=== PATIENT | female | born 1945 | race African-American/Black ===

== ENCOUNTER 2022-06-24 16:56 | Observation (INO) ==
[2022-06-24] MEDS ORDERED: SODIUM CHLORIDE 0.9% 500 ML IV STA (17:37)
[2022-06-24] MEDS ORDERED: hydrALAZINE 20 MG/1 ML VIAL IV STA (17:49)
[2022-06-24 18:32] LABS: Basophils % 0.2 % (0.0-0.8); Hematocrit 35.2 VOL% (35.7-47.0); Hemoglobin 11.5 GM/DL (12.0-16.0); Immature Granulocytes % 0.3 %; Immature Granulocytes Absolute 0.02 #; Lymphocytes # 0.5 10*3/uL (1.4-4.0); Lymphocytes % 8.6 % (21.3-54.2); Mean Corpuscular HGB Conc 32.7 GM/DL (32-36); Mean Corpuscular Volume 80.2 FL (87-102); Mean Platelet Volume 11.6 FL (9.6-12.0); Monocytes # 0.2 10*3/uL (0.11-0.8); Monocytes % 3.3 % (1.7-12.7); Neutrophils % 87.6 % (38.7-73.9); Platelet Count 185 T/CUMM (130-400); Red Blood Count 4.39 MC/CUMM (3.8-5.5); Red Cell Distribution Width 13.8 % (9.3-17.3); White Blood Count 5.8 T/CUMM (4-12)
[2022-06-24 18:40] LABS: PT Patient Result 11.4 SECS (10.1-12.1)
[2022-06-24 18:52] LABS: Albumin 3.1 G/DL (3.4-5.0); Calcium 10.4 MG/DL (8.5-10.1); Osmolality,Calculated 289.8 MOS/KG (273-304); Potassium 3.7 MMOL/L (3.5-5.1); Total Protein 7.8 G/DL (6.4-8.2)
[2022-06-24 20:55] LABS: Mucus,Urine Occasional /LPF (Occasional); RBC,Urine 14 /HPF (0-4)
[2022-06-24 21:13] LABS: Urine Appearance Clear (Clear); Urine Color Yellow (Yellow); Urine pH 6.5 (4.5-8.0)
[2022-06-24 21:14] LABS: Glucose,Urine (UA) Negative (Negative); Ketones,Urine 15 mg/dL (Negative); Nitrite,Urine Negative (Negative); Protein,Urine >=300 mg/dL (Negative)
[2022-06-24 21:15] LABS: Bilirubin,Urine Small mg/dL (Negative); Blood, Urine Large mg/dL (Negative); Urine Urobilinogen 0.2 eU/dL (<2.0)
[2022-06-24] MEDS ORDERED: LABETALOL 20 MG/4 ML SYRINGE IV STA (21:25)
[2022-06-24] MEDS ORDERED: ACETAMINOPHEN 325 MG TABLET PO PRN (21:57)
[2022-06-24] MEDS ORDERED: GLUCAGON 1 MG VIAL IM PRN (21:57)
[2022-06-24] MEDS ORDERED: ONDANSETRON 4 MG/2 ML VIAL IV PRN (21:57)
[2022-06-24] MEDS ORDERED: LABETALOL 20 MG/4 ML SYRINGE IV PRN (21:57)
[2022-06-24] MEDS ORDERED: DEXTROSE 10% 250 ML BAG IV PRN (22:26)
[2022-06-25] MEDS: hydrALAZINE 20 MG/1 ML VIAL IV PRN ×2 (03:22→18:07)
[2022-06-25 05:25] LABS: Basophils % 0.4 % (0.0-0.8); Eosinophils % 0.1 % (0.00-10.9); Hematocrit 31.6 VOL% (35.7-47.0); Hemoglobin 10.4 GM/DL (12.0-16.0); Immature Granulocytes % 0.4 %; Immature Granulocytes Absolute 0.03 #; Lymphocytes # 0.9 10*3/uL (1.4-4.0); Lymphocytes % 12.4 % (21.3-54.2); Mean Corpuscular HGB Conc 32.9 GM/DL (32-36); Mean Corpuscular Volume 78.6 FL (87-102); Mean Platelet Volume 11.9 FL (9.6-12.0); Monocytes # 0.7 10*3/uL (0.11-0.8); Neutrophils % 77.7 % (38.7-73.9); Platelet Count 170 T/CUMM (130-400); Red Blood Count 4.02 MC/CUMM (3.8-5.5); Red Cell Distribution Width 13.9 % (9.3-17.3); White Blood Count 7.3 T/CUMM (4-12)
[2022-06-25 05:36] LABS: Calcium 10.4 MG/DL (8.5-10.1); Osmolality,Calculated 291.7 MOS/KG (273-304); Potassium 3.4 MMOL/L (3.5-5.1)
[2022-06-25] MEDS: INSULIN LISPRO 100 UNIT/ML SUBCUT SCH ×4 (08:00→20:49)
[2022-06-25] MEDS: PANTOPRAZOLE 40 MG TABLET PO SCH (10:16)
[2022-06-25] MEDS: LOSARTAN 25 MG TABLET PO SCH (10:16)
[2022-06-25] MEDS: ENOXAPARIN 40 MG/0.4 ML SYRINGE SUBCUT SCH (10:16)
[2022-06-25] MEDS: SERTRALINE 25 MG TABLET PO SCH (10:16)
[2022-06-25] MEDS ORDERED: ATORVASTATIN 20 MG TABLET PO SCH (21:00)
[2022-06-26 05:21] LABS: Basophils % 0.5 % (0.0-0.8); Eosinophils # 0.1 10*3/uL (0.0-0.87); Eosinophils % 1.2 % (0.00-10.9); Hematocrit 29.4 VOL% (35.7-47.0); Hemoglobin 9.7 GM/DL (12.0-16.0); Immature Granulocytes % 0.3 %; Immature Granulocytes Absolute 0.02 #; Lymphocytes # 1.1 10*3/uL (1.4-4.0); Lymphocytes % 16.1 % (21.3-54.2); Mean Corpuscular Volume 78.2 FL (87-102); Mean Platelet Volume 11.2 FL (9.6-12.0); Monocytes # 0.6 10*3/uL (0.11-0.8); Neutrophils % 72.9 % (38.7-73.9); Platelet Count 166 T/CUMM (130-400); Red Blood Count 3.76 MC/CUMM (3.8-5.5); Red Cell Distribution Width 13.9 % (9.3-17.3); White Blood Count 6.6 T/CUMM (4-12)
[2022-06-26 05:39] LABS: Calcium 9.7 MG/DL (8.5-10.1); Potassium 3.1 MMOL/L (3.5-5.1)
[2022-06-26] MEDS ORDERED: POTASSIUM CHLORIDE 20 MEQ TABLET PO ONE ×3 (07:42→11:00)
[2022-06-26] MEDS: SERTRALINE 25 MG TABLET PO SCH (08:51)
[2022-06-26] MEDS: LOSARTAN 25 MG TABLET PO SCH (08:51)
[2022-06-26] MEDS: ENOXAPARIN 40 MG/0.4 ML SYRINGE SUBCUT SCH (08:52)
[2022-06-26] MEDS: PANTOPRAZOLE 40 MG TABLET PO SCH (08:52)
[2022-06-26] MEDS: INSULIN LISPRO 100 UNIT/ML SUBCUT SCH ×2 (08:57→10:48)
[2022-06-26] MEDS ORDERED: amLODIPine 10 MG TABLET PO SCH (09:00)
[2022-06-26 11:43] VITALS: BP 164/67
== END 2022-06-26 12:05 | disposition home health service (06) ==
LOC: EDUNIT# → N.ED 16:56 → N.EDINP 16:56 → N.TELES 06-25 07:55
PROVIDERS: ADMIT Family Medicine; ATTEND Family Medicine

== ENCOUNTER 2022-06-27 15:48 | Observation (INO) ==
[2022-06-27] MEDS ORDERED: SODIUM CHLORIDE 0.9% 1,000 ML IV STA (16:54)
[2022-06-27 17:48] LABS: Basophils % 0.1 % (0.0-0.8); Eosinophils % 0.1 % (0.00-10.9); Hematocrit 32.1 VOL% (35.7-47.0); Hemoglobin 10.4 GM/DL (12.0-16.0); Immature Granulocytes % 0.2 %; Immature Granulocytes Absolute 0.02 #; Lymphocytes # 0.7 10*3/uL (1.4-4.0); Lymphocytes % 8.9 % (21.3-54.2); Mean Corpuscular HGB Conc 32.4 GM/DL (32-36); Mean Corpuscular Volume 79.1 FL (87-102); Monocytes # 0.7 10*3/uL (0.11-0.8); Monocytes % 8.8 % (1.7-12.7); Neutrophils % 81.9 % (38.7-73.9); Platelet Count 194 T/CUMM (130-400); Red Blood Count 4.06 MC/CUMM (3.8-5.5); Red Cell Distribution Width 14.1 % (9.3-17.3); White Blood Count 8.3 T/CUMM (4-12)
[2022-06-27 18:05] LABS: Osmolality,Calculated 288.1 MOS/KG (273-304); Potassium 4.2 MMOL/L (3.5-5.1)
[2022-06-27 18:29] LABS: Bacteria,Urine Many /HPF (Few); Hyaline Casts,Urine 6 /LPF (0-3); Mucus,Urine Occasional /LPF (Occasional); RBC,Urine 4 /HPF (0-4); Squamous Epithelial Cell,Urine Few /HPF (0-10)
[2022-06-27 18:30] LABS: Bilirubin,Urine Small mg/dL (Negative); Blood, Urine Small mg/dL (Negative); Glucose,Urine (UA) Negative (Negative); Ketones,Urine Negative (Negative); Nitrite,Urine Negative (Negative); Protein,Urine >=300 mg/dL (Negative); Urine Appearance Cloudy (Clear); Urine Color Yellow (Yellow); Urine Urobilinogen 0.2 eU/dL (<2.0)
[2022-06-27] MEDS ORDERED: hydrALAZINE 20 MG/1 ML VIAL IV PRN (19:18)
[2022-06-27] MEDS ORDERED: ONDANSETRON 4 MG/2 ML VIAL IV PRN (19:18)
[2022-06-27] MEDS ORDERED: GLUCAGON 1 MG VIAL IM PRN (19:18)
[2022-06-27] MEDS ORDERED: ACETAMINOPHEN 325 MG TABLET PO PRN (19:18)
[2022-06-27] MEDS ORDERED: DEXTROSE 10% 250 ML BAG IV PRN (20:56)
[2022-06-27] MEDS ORDERED: SODIUM CHLORIDE 0.45% 1,000 ML IV SCH (21:30)
[2022-06-27] MEDS: HEPARIN 5,000 UNIT/1 ML VIAL SUBCUT SCH (22:31)
[2022-06-27] MEDS: cefTRIAXone 1,000 MG in SODIUM CHLORIDE 0.9% 100 ML IV SCH ×2 (22:50→22:53)
[2022-06-28 05:18] LABS: Basophils % 0.3 % (0.0-0.8); Eosinophils % 0.4 % (0.00-10.9); Hematocrit 29.2 VOL% (35.7-47.0); Hemoglobin 9.4 GM/DL (12.0-16.0); Immature Granulocytes % 0.4 %; Immature Granulocytes Absolute 0.03 #; Lymphocytes # 0.8 10*3/uL (1.4-4.0); Lymphocytes % 10.8 % (21.3-54.2); Mean Corpuscular HGB Conc 32.2 GM/DL (32-36); Mean Platelet Volume 11.3 FL (9.6-12.0); Monocytes # 0.6 10*3/uL (0.11-0.8); Monocytes % 8.2 % (1.7-12.7); Neutrophils % 79.9 % (38.7-73.9); Platelet Count 181 T/CUMM (130-400); Red Blood Count 3.65 MC/CUMM (3.8-5.5); Red Cell Distribution Width 14.1 % (9.3-17.3); White Blood Count 7.3 T/CUMM (4-12)
[2022-06-28 05:38] LABS: Parathyroid Hormone Intact 150.7 PG/ML (18.4-80.1)
[2022-06-28 05:47] LABS: Calcium 10.2 MG/DL (8.5-10.1); Osmolality,Calculated 293.6 MOS/KG (273-304); Potassium 4.2 MMOL/L (3.5-5.1); Thyroid Stimulating Hormone 0.843 uIU/ml (0.358-3.74)
[2022-06-28] MEDS ORDERED: TUBERCULIN SKIN TEST 0.1 ML SYRINGE INTRADERM ONE (07:45)
[2022-06-28] MEDS: HEPARIN 5,000 UNIT/1 ML VIAL SUBCUT SCH ×2 (09:08→21:37)
[2022-06-28] MEDS: amLODIPine 10 MG TABLET PO SCH (09:08)
[2022-06-28] MEDS: SERTRALINE 25 MG TABLET PO SCH (09:08)
[2022-06-28] MEDS: SODIUM CHLORIDE 0.45% 1,000 ML IV SCH ×2 (16:04→23:38)
[2022-06-28] MEDS: QUEtiapine 25 MG TABLET PO SCH (21:36)
[2022-06-28] MEDS: cefTRIAXone 1,000 MG in SODIUM CHLORIDE 0.9% 100 ML IV SCH ×2 (23:20→23:22)
[2022-06-29 06:39] LABS: Calcium 9.3 MG/DL (8.5-10.1); Osmolality,Calculated 289.8 MOS/KG (273-304); Potassium 3.6 MMOL/L (3.5-5.1)
[2022-06-29 06:42] LABS: Basophils % 0.6 % (0.0-0.8); Eosinophils # 0.2 10*3/uL (0.0-0.87); Eosinophils % 2.8 % (0.00-10.9); Hematocrit 26.2 VOL% (35.7-47.0); Hemoglobin 8.6 GM/DL (12.0-16.0); Immature Granulocytes % 0.4 %; Immature Granulocytes Absolute 0.02 #; Lymphocytes # 1.1 10*3/uL (1.4-4.0); Lymphocytes % 20.3 % (21.3-54.2); Mean Corpuscular HGB Conc 32.8 GM/DL (32-36); Mean Corpuscular Volume 78.2 FL (87-102); Mean Platelet Volume 11.2 FL (9.6-12.0); Monocytes # 0.6 10*3/uL (0.11-0.8); Monocytes % 12.1 % (1.7-12.7); Neutrophils % 63.8 % (38.7-73.9); Platelet Count 177 T/CUMM (130-400); Red Blood Count 3.35 MC/CUMM (3.8-5.5); Red Cell Distribution Width 14.1 % (9.3-17.3); White Blood Count 5.3 T/CUMM (4-12)
[2022-06-29] MEDS: amLODIPine 10 MG TABLET PO SCH (09:08)
[2022-06-29] MEDS: SERTRALINE 25 MG TABLET PO SCH (09:08)
[2022-06-29] MEDS: HEPARIN 5,000 UNIT/1 ML VIAL SUBCUT SCH ×2 (09:09→21:53)
[2022-06-29] MEDS: SODIUM CHLORIDE 0.45% 1,000 ML IV SCH (13:38)
[2022-06-29] MEDS: LACTATED RINGERS 1,000 ML IV SCH ×2 (18:12→22:23)
[2022-06-29] MEDS: QUEtiapine 25 MG TABLET PO SCH (21:53)
[2022-06-29] MEDS: CHOLECALCIFEROL 5,000 UNIT TABLET PO SCH (22:23)
[2022-06-29] MEDS: cefTRIAXone 1,000 MG in SODIUM CHLORIDE 0.9% 100 ML IV SCH ×2 (22:23→22:49)
[2022-06-30] MEDS: LACTATED RINGERS 1,000 ML IV SCH ×3 (07:10→20:38)
[2022-06-30 07:56] LABS: Basophils % 0.7 % (0.0-0.8); Eosinophils # 0.3 10*3/uL (0.0-0.87); Eosinophils % 5.3 % (0.00-10.9); Hematocrit 25.4 VOL% (35.7-47.0); Hemoglobin 8.4 GM/DL (12.0-16.0); Immature Granulocytes % 0.4 %; Immature Granulocytes Absolute 0.02 #; Lymphocytes # 1.3 10*3/uL (1.4-4.0); Lymphocytes % 22.3 % (21.3-54.2); Mean Corpuscular HGB Conc 33.1 GM/DL (32-36); Mean Corpuscular Volume 78.9 FL (87-102); Mean Platelet Volume 11.5 FL (9.6-12.0); Monocytes # 0.8 10*3/uL (0.11-0.8); Monocytes % 13.9 % (1.7-12.7); Neutrophils % 57.4 % (38.7-73.9); Platelet Count 193 T/CUMM (130-400); Red Blood Count 3.22 MC/CUMM (3.8-5.5); White Blood Count 5.6 T/CUMM (4-12)
[2022-06-30] MEDS: SERTRALINE 25 MG TABLET PO SCH (08:38)
[2022-06-30] MEDS: amLODIPine 10 MG TABLET PO SCH (08:38)
[2022-06-30] MEDS: CHOLECALCIFEROL 5,000 UNIT TABLET PO SCH ×2 (08:38→20:38)
[2022-06-30] MEDS: HEPARIN 5,000 UNIT/1 ML VIAL SUBCUT SCH ×2 (08:39→20:38)
[2022-06-30] MEDS: QUEtiapine 25 MG TABLET PO SCH (20:38)
[2022-06-30] MEDS: cefTRIAXone 1,000 MG in SODIUM CHLORIDE 0.9% 100 ML IV SCH (22:16)
[2022-07-01 05:08] LABS: Basophils % 0.5 % (0.0-0.8); Eosinophils # 0.3 10*3/uL (0.0-0.87); Eosinophils % 5.2 % (0.00-10.9); Hematocrit 26.3 VOL% (35.7-47.0); Hemoglobin 8.6 GM/DL (12.0-16.0); Immature Granulocytes % 0.5 %; Immature Granulocytes Absolute 0.03 #; Lymphocytes # 1.1 10*3/uL (1.4-4.0); Lymphocytes % 16.5 % (21.3-54.2); Mean Corpuscular HGB Conc 32.7 GM/DL (32-36); Mean Corpuscular Volume 78.7 FL (87-102); Mean Platelet Volume 12.1 FL (9.6-12.0); Monocytes # 0.9 10*3/uL (0.11-0.8); Monocytes % 14.2 % (1.7-12.7); Neutrophils % 63.1 % (38.7-73.9); Platelet Count 176 T/CUMM (130-400); Red Blood Count 3.34 MC/CUMM (3.8-5.5); Red Cell Distribution Width 14.3 % (9.3-17.3); White Blood Count 6.5 T/CUMM (4-12)
[2022-07-01 05:35] LABS: Albumin 2.4 G/DL (3.4-5.0); Bilirubin,Total 0.4 MG/DL (0.20-1.00); Calcium 10.2 MG/DL (8.5-10.1); Osmolality,Calculated 280.4 MOS/KG (273-304); Potassium 3.5 MMOL/L (3.5-5.1); Total Protein 5.7 G/DL (6.4-8.2)
[2022-07-01] MEDS: LACTATED RINGERS 1,000 ML IV SCH ×2 (05:43→15:35)
[2022-07-01] MEDS: amLODIPine 10 MG TABLET PO SCH (08:49)
[2022-07-01] MEDS: HEPARIN 5,000 UNIT/1 ML VIAL SUBCUT SCH ×2 (08:49→20:31)
[2022-07-01] MEDS: CHOLECALCIFEROL 5,000 UNIT TABLET PO SCH ×2 (08:49→20:32)
[2022-07-01] MEDS: SERTRALINE 25 MG TABLET PO SCH (08:49)
[2022-07-01] MEDS ORDERED: POTASSIUM CHLORIDE 20 MEQ TABLET PO ONE (09:00)
[2022-07-01] MEDS: CEFDINIR 300 MG CAPSULE PO SCH (20:31)
[2022-07-01] MEDS: QUEtiapine 25 MG TABLET PO SCH (20:32)
[2022-07-02 05:29] LABS: Basophils % 0.5 % (0.0-0.8); Eosinophils # 0.2 10*3/uL (0.0-0.87); Eosinophils % 3.4 % (0.00-10.9); Hematocrit 27.4 VOL% (35.7-47.0); Immature Granulocytes % 0.2 %; Immature Granulocytes Absolute 0.01 #; Lymphocytes # 1.2 10*3/uL (1.4-4.0); Mean Corpuscular HGB Conc 32.8 GM/DL (32-36); Mean Corpuscular Volume 78.7 FL (87-102); Mean Platelet Volume 11.3 FL (9.6-12.0); Monocytes # 0.9 10*3/uL (0.11-0.8); Monocytes % 13.9 % (1.7-12.7); Platelet Count 212 T/CUMM (130-400); Red Blood Count 3.48 MC/CUMM (3.8-5.5); Red Cell Distribution Width 14.1 % (9.3-17.3); White Blood Count 6.4 T/CUMM (4-12)
[2022-07-02 05:56] LABS: Calcium 10.3 MG/DL (8.5-10.1); Osmolality,Calculated 277.5 MOS/KG (273-304); Potassium 3.7 MMOL/L (3.5-5.1)
[2022-07-02] MEDS: HEPARIN 5,000 UNIT/1 ML VIAL SUBCUT SCH ×2 (08:44→21:00)
[2022-07-02] MEDS: CEFDINIR 300 MG CAPSULE PO SCH ×2 (08:45→21:01)
[2022-07-02] MEDS: SERTRALINE 25 MG TABLET PO SCH (08:46)
[2022-07-02] MEDS: amLODIPine 10 MG TABLET PO SCH (08:46)
[2022-07-02] MEDS: CHOLECALCIFEROL 5,000 UNIT TABLET PO SCH (08:46)
[2022-07-02] MEDS: LOSARTAN 25 MG TABLET PO SCH (08:46)
[2022-07-02] MEDS ORDERED: OXYBUTYNIN XL 10 MG TABLET PO SCH (09:00)
[2022-07-02] MEDS ORDERED: DEXTROSE 50% 25 GM/50 ML VIAL IV PRN (12:10)
[2022-07-02] MEDS: LACTATED RINGERS 1,000 ML IV SCH (16:20)
[2022-07-02] MEDS: INSULIN LISPRO 100 UNIT/ML SUBCUT SCH ×2 (16:21→20:03)
[2022-07-02] MEDS ORDERED: ATORVASTATIN 20 MG TABLET PO SCH (21:00)
[2022-07-03] MEDS: LACTATED RINGERS 1,000 ML IV SCH (05:10)
[2022-07-03 05:20] LABS: Basophils % 0.3 % (0.0-0.8); Eosinophils # 0.2 10*3/uL (0.0-0.87); Eosinophils % 3.5 % (0.00-10.9); Hemoglobin 8.7 GM/DL (12.0-16.0); Immature Granulocytes % 0.2 %; Immature Granulocytes Absolute 0.01 #; Lymphocytes # 1.4 10*3/uL (1.4-4.0); Lymphocytes % 22.1 % (21.3-54.2); Mean Corpuscular HGB Conc 33.5 GM/DL (32-36); Mean Corpuscular Volume 78.5 FL (87-102); Monocytes % 16.8 % (1.7-12.7); Neutrophils % 57.1 % (38.7-73.9); Platelet Count 227 T/CUMM (130-400); Red Blood Count 3.31 MC/CUMM (3.8-5.5); Red Cell Distribution Width 14.5 % (9.3-17.3); White Blood Count 6.2 T/CUMM (4-12)
[2022-07-03 05:37] LABS: Calcium 9.8 MG/DL (8.5-10.1); Osmolality,Calculated 279.3 MOS/KG (273-304); Potassium 3.5 MMOL/L (3.5-5.1)
[2022-07-03 05:49] LABS: Eosinophils 6 % (0-10); Hypochromia Slight; Lymphocytes 23 % (20-55); Microcytosis Slight; Platelet Estimate Adequate; Total Cells Counted 100
[2022-07-03] MEDS ORDERED: MAGNESIUM SULF RIDER 2 GM/50 ML PREMIX IV ONE (06:03)
[2022-07-03] MEDS: INSULIN LISPRO 100 UNIT/ML SUBCUT SCH ×2 (07:44→11:49)
[2022-07-03] MEDS: amLODIPine 10 MG TABLET PO SCH (08:59)
[2022-07-03] MEDS: LOSARTAN 25 MG TABLET PO SCH (08:59)
[2022-07-03] MEDS: CEFDINIR 300 MG CAPSULE PO SCH (09:00)
[2022-07-03] MEDS ORDERED: CHOLECALCIFEROL 1,000 UNIT TABLET PO SCH (09:00)
[2022-07-03] MEDS: SERTRALINE 25 MG TABLET PO SCH (09:00)
[2022-07-03] MEDS: HEPARIN 5,000 UNIT/1 ML VIAL SUBCUT SCH (09:43)
[2022-07-03] MEDS ORDERED: MENTHOL/ZINC OXIDE OINT 71 GM JAR TOP SCH (11:00)
[2022-07-03 12:17] VITALS: BP 163/69
[2022-07-04] MEDS ORDERED: LOSARTAN 50 MG TABLET PO SCH (09:00)
== END 2022-07-03 15:45 ==
LOC: N.ED 15:48 → N.EDINP 15:48 → N.3E 21:00 → SUATTDRO 06-28 08:10
PROVIDERS: ADMIT Family Medicine; ATTEND Internal Medicine